=== PATIENT | female | born 1980 | race Caucasian/White ===

== ENCOUNTER 2020-11-22 13:54 | Emergency (ER) | payer OTHER ==
[~2020-11-22] VITALS: Ht 154.9 cm; Wt 78.5 kg
[2020-11-22] MEDS ORDERED: XANAX 0.5 MG0.5 M1 PO (14:09)
[2020-11-22] MEDS ORDERED: SPRINTEC1 EACH PO (14:10)
[2020-11-22 14:22] LABS: URINE BILIRUBIN NEGATIVE (Negative); URINE BLOOD NEGATIVE (Negative); URINE CLARITY CLEAR; URINE COLOR YELLOW; URINE GLUCOSE-RANDOM NEGATIVE (Negative); URINE KETONES NEGATIVE (Negative); URINE LEUKOCYTES-REFLEX NEGATIVE (Negative); URINE NITRITE-REFLEX NEGATIVE (Negative); URINE PROTEIN NEGATIVE (Negative); URINE UROBILINOGEN 0.2 E.U./dl (0.2-1.0)
[2020-11-22 15:10] LABS: ABSOLUTE EOSINOPHILS 0.1 thou/uL (0.0-0.7); ABSOLUTE LYMPHOCYTES 1.6 thou/uL (0.8-5.3); ABSOLUTE MONOCYTES 0.8 thou/uL (0.0-1.2); ABSOLUTE NEUTROPHILS 7.1 thou/uL (1.6-8.1); BASOPHILS 0.5 %; EOSINOPHILS 0.8 %; HEMATOCRIT 43.5 % (37.0-47.0); HEMOGLOBIN 14.7 gm/dL (12.0-15.0); LYMPHOCYTES 16.4 %; MCH 32.1 pg (26.0-34.0); MCHC 33.8 g/dL (28.0-37.0); MONOCYTES 8.8 %; MPV 7.2 fl. (7.2-11.1); NUCLEATED RBCS 0 /100WBC; PLATELET COUNT* 305 thou/uL (150-400); POLYS 73.5 %; RBC 4.57 mil/uL (4.20-5.00); RDW-CV 12.5 % (10.5-14.5); WBC 9.7 thou/uL (4.0-11.0)
[2020-11-22 15:23] LABS: CALCIUM 9.1 mg/dL (8.5-10.1); CREATININE 0.6 mg/dL (0.6-1.3); POTASSIUM 4.1 mmol/L (3.5-5.1)
[2020-11-22 15:33] LABS: ALBUMIN 3.7 g/dL (3.4-5.0); TOTAL BILIRUBIN 0.7 mg/dL (<0.1-1.0); TOTAL PROTEIN 7.5 g/dL (6.4-8.2)
[2020-11-22] MEDS ORDERED: CIPRO500 M1 PO (16:39)
[2020-11-22] MEDS ORDERED: NORCO5 PO (16:39)
[2020-11-22] MEDS ORDERED: ONDANSETRON ODT4 MG PO (16:39)
[2020-11-22] MEDS ORDERED: FLAGYL500 M1 PO (16:39)
[2020-11-22 17:02] VITALS: BP 135/85
== END 2020-11-22 17:02 | disposition home or self-care (01) ==
LOC: M.ERS 13:54
PROVIDERS: Physician Assistant
DX: N83.02 Follicular cyst of left ovary (principal); N83.01 Follicular cyst of right ovary; Z88.0 Allergy status to penicillin; Z98.890 Other specified postprocedural states